=== PATIENT | male | born 1955 | race Caucasian/White ===

== ENCOUNTER → 2018-02-25 10:24 | Outpatient (CLI) | payer OTHER, SELFPAY ==
--- NOTE | 2018-02-25 | DI.MRI.S_ITS ---
PROCEDURE: MR LUMBAR SPINE WO CON INDICATIONS: ARTHRITIS BILATERAL SCIATICA LUMBAR REGION TECHNIQUE: Noncontrast sagittal T1 spin echo and T2 fast echo, sagittal STIR, axial T1 and T2 fast spin echo through the lumbar spine. In cases with scoliosis, additional coronal T2 fast spin echo may be performed. COMPARISON: None. FINDINGS: Image quality: Excellent. Alignment and Curvature: There is normal bony alignment. Mild convex right thoracolumbar spine curvature. Bone Marrow: Mild reactive endplate changes noted adjacent to the L5-S1 disc. No acute vertebral body compression fractures. Spinal Cord: Conus medullaris terminates at the L1 level. Visualized cord demonstrates normal signal and size. Paraspinous Soft Tissues: No paravertebral masses. L1-L2: Normal appearance. L2-L3: Loss of disc signal. Mild, diffuse disc bulge. Moderate facet and moderate ligamentum flavum hypertrophy. Moderate to severe narrowing of the central canal. Mild bilateral neural foraminal narrowing. L3-L4: Loss of disc signal. Mild diffuse disc bulge. Severe facet and severe ligamentum flavum hypertrophy. Severe central stenosis. Moderate to severe bilateral neural foraminal narrowing with slight flexion deformity of the exiting L3 nerve roots. L4-L5: Loss of the signal. Minimal, diffuse disc bulge. Mild facet hypertrophy. Moderate narrowing of the central canal. Moderate bilateral neural foraminal narrowing. L5-S1: Loss of disc signal and height. Minimal, diffuse disc bulge and mild bilateral facet hypertrophy. No central stenosis. Moderate to severe bilateral neural foraminal narrowing with slight flattened deformity of the exiting L5 nerve roots. IMPRESSION: 1. Multilevel degenerative disc disease. 2. Multilevel facet arthropathy. 3. Severe L3-L4 central canal stenosis. Moderate to severe L2-L3 central canal narrowing. Moderate L4-L5 central canal narrowing. 4. Moderate to severe bilateral L3-L4 and L5-S1 neural foraminal narrowing. Moderate bilateral L4-L5 neural foraminal narrowing. Mild bilateral L2-L3 neural foraminal narrowing. Dictated by: Mary Mercedes MD, PhD on 02/25/2018 at 13:54 Approved by: Mary Mercedes MD, PhD on 02/25/2018 at 13:59
== END ==
PROVIDERS: PCP Family Medicine; Visit Provider Family Medicine
DX: M47.896 Other spondylosis, lumbar region (principal); M54.30 Sciatica, unspecified side; M51.36 Other intervertebral disc degeneration, lumbar region; M47.816 Spondylosis without myelopathy or radiculopathy, lumbar region; M48.061 Spinal stenosis, lumbar region without neurogenic claudication; M48.07 Spinal stenosis, lumbosacral region
CPT/HCPCS: 72148

== ENCOUNTER → 2018-03-04 10:49 | Outpatient (CLI) | payer OTHER, SELFPAY ==
[2018-03-04 12:05] LABS: Add Manual Diff / Slide Review NO; Basophils Percent Auto 0.8 % (0-2); Eosinophils Percent Auto 2.9 % (2-4); Hematocrit 38.1 % (41-53); Hemoglobin 12.8 g/dL (13.5-17.5); Lymphocytes Percent Auto 26.3 % (25-40); Mean Corpuscular HGB Conc 33.7 % (30-36); Mean Corpuscular Hemoglobin 30.7 PG (26-34); Mean Corpuscular Volume 91.1 fL (80-100); Monocytes Percent Auto 11.1 % (3-14); Neutrophils Absolute Auto 2900 /uL (3000-5900); Neutrophils Percent Auto 58.9 % (50-75); Platelet Count 193 X10^3/uL (150-400); Red Blood Cell Count 4.19 X10^6/uL (4.5-5.9); Red Cell Distribution Width 13.7 % (11.6-14.8)
[2018-03-04 12:13] LABS: Alanine Aminotransferase 31 IU/L (21-72); Albumin 3.9 g/dL (3.5-5.0); Albumin Globulin Ratio 1.5 (1.0-2.8); Alkaline Phosphatase 62 U/L (38-126); Aspartate Aminotransferase 28 IU/L (17-59); BUN Creatinine Ratio 18.8 (6-22); Bilirubin Total 0.7 mg/dL (0.2-1.3); Blood Urea Nitrogen 15 mg/dL (9-20); Calcium 8.9 mg/dL (8.4-10.2); Carbon Dioxide 28 mmol/L (22-32); Chloride 103 mmol/L (98-107); Estimated Glomerular Filt Rate > 60.0 mL/min (>60); Globulin 2.6 g/dL (1.7-4.1); Glucose 86 mg/dL (80-110); HEMOLYSIS < 15 (0-50); Potassium 4.8 mmol/L (3.4-5.1); Sodium 140 mmol/L (137-145); Total Protein 6.5 g/dL (6.3-8.2)
[2018-03-04 12:20] LABS: Erythrocyte Sedimentation Rate 4 MM/HR (0-15)
== END ==
PROVIDERS: PCP Family Medicine; Visit Provider Family Medicine
DX: M46.96 Unspecified inflammatory spondylopathy, lumbar region (principal); M54.31 Sciatica, right side; M54.32 Sciatica, left side
CPT/HCPCS: 36415; 80053; 85025; 85651

== ENCOUNTER → 2022-01-07 09:18 | Outpatient (CLI) | payer MEDICARE, OTHER, SELFPAY ==
[2022-01-07 19:16] LABS: Prostate Specific Antigen 2.49 ng/mL (0.10-4.00)
== END ==
PROVIDERS: PCP Family Medicine; Visit Provider Specialist
DX: R97.20 Elevated prostate specific antigen [PSA] (principal)
CPT/HCPCS: 84153

== ENCOUNTER → 2022-12-03 08:32 | Outpatient (CLI) | payer MEDICARE, OTHER, SELFPAY ==
[2022-12-03 10:50] LABS: Prostate Specific Antigen 3.33 ng/mL (0.10-4.00)
== END ==
PROVIDERS: Referring Provider Specialist; Visit Provider Specialist
DX: R97.20 Elevated prostate specific antigen [PSA] (principal)
CPT/HCPCS: 36415; 84153

== ENCOUNTER → 2022-12-24 11:44 | Outpatient (CLI) | payer MEDICARE, OTHER, SELFPAY ==
--- NOTE | 2022-12-24 11:46 | DI.MRI.S_ITS ---
PROCEDURE: MR SHOULDER RT WO CON INDICATIONS: Pain not resolving TECHNIQUE: Noncontrast oblique coronal T2 fast spin echo with fat saturation, oblique sagittal T1 spin echo and T2 fast spin echo with fat saturation, axial T1 spin echo and T2 fast spin echo with fat saturation through the shoulder. COMPARISON: [facility] ([facility]), CR, XR SHOULDER RT MIN 2V, 11/06/2022, 10:47. FINDINGS: Image quality: Excellent. Rotator cuff: Moderate T2 signal elevation diffusely throughout the supraspinatus and infraspinatus tendons at the humeral insertion sites extending the musculotendinous junctions, indicating tendinopathy. Superimposed full-thickness tearing of the mid and anterior supraspinatus tendon at the humeral insertion site measuring roughly 20 mm anteroposterior with medial retraction and atrophy of the supraspinatus. There is low-grade partial-thickness intrasubstance tearing of the mid and anterior infraspinatus tendon at the humeral insertion site. Subscapularis tendon demonstrates low-grade partial-thickness articular surface tearing within its mid and superior aspects at the humeral insertion site extending to the musculotendinous junction. Teres minor is intact. Bones and bursae: No bone marrow contusions or fractures. Mild glenohumeral and moderate acromioclavicular joint degeneration. The acromion demonstrates conventional anatomy, without an os acromiale. No pathologic subacromial-subdeltoid or subcoracoid bursal fluid is present. Capsule and soft tissues: Diffuse degenerative fraying of the glenoid labrum which demonstrates undercutting posteriorly, indicating tearing. The long head of the biceps tendon demonstrates normal location and morphology. The rotator interval appears normal, without fibrosis. The coracohumeral ligament is normal in thickness. IMPRESSION: 1. Supraspinatus and infraspinatus tendinopathy 2. Full-thickness and partial-thickness tears of the subscapularis, supraspinatus, and infraspinatus tendons as described above. 3. Glenoid labral tearing. 4. Acromioclavicular joint osteoarthritis. Dictated by: James Sierra M.D. on 12/24/2022 at 13:07 Approved by: James Sierra M.D. on 12/24/2022 at 13:10
== END ==
PROVIDERS: PCP Physician Assistant; Referring Provider Family Medicine; Visit Provider Family Medicine
DX: M75.121 Complete rotator cuff tear or rupture of right shoulder, not specified as traumatic (principal); S43.491A Other sprain of right shoulder joint, initial encounter; M75.41 Impingement syndrome of right shoulder; M19.011 Primary osteoarthritis, right shoulder; M25.511 Pain in right shoulder
CPT/HCPCS: 73221

== ENCOUNTER → 2023-01-13 11:28 | Outpatient (CLI) | payer MEDICARE, OTHER, SELFPAY ==
[2023-01-13 20:19] LABS: Prostate Specific Antigen 2.79 ng/mL (0.10-4.00)
== END ==
PROVIDERS: PCP Family Medicine; Visit Provider Specialist
DX: R97.20 Elevated prostate specific antigen [PSA] (principal)
CPT/HCPCS: 84153

== ENCOUNTER → 2023-06-21 14:07 | Outpatient (CLI) | payer MEDICARE, OTHER, SELFPAY ==
[2023-06-21 16:42] LABS: Prostate Specific Antigen 2.97 ng/mL (0.10-4.00)
== END ==
PROVIDERS: PCP Family Medicine; Referring Provider Specialist; Visit Provider Specialist
DX: N40.0 Benign prostatic hyperplasia without lower urinary tract symptoms (principal)
CPT/HCPCS: 36415; 84153

== ENCOUNTER → 2024-01-18 13:50 | Outpatient (CLI) | payer MEDICARE, OTHER, SELFPAY ==
[2024-01-18 17:02] LABS: Prostate Specific Antigen 3.74 ng/mL (0.10-4.00)
== END ==
PROVIDERS: PCP Family Medicine; Referring Provider Specialist; Visit Provider Specialist
DX: R97.20 Elevated prostate specific antigen [PSA] (principal)
CPT/HCPCS: 36415; 84153

== ENCOUNTER → 2024-05-23 13:56 | Outpatient (CLI) | payer MEDICARE, OTHER, SELFPAY | PROVIDERS: PCP Family Medicine; Referring Provider Specialist; Visit Provider Specialist | DX: N40.1 Benign prostatic hyperplasia with lower urinary tract symptoms (principal); N13.8 Other obstructive and reflux uropathy | CPT/HCPCS: 36415; 84153 ==

== ENCOUNTER → 2025-01-08 13:02 | Outpatient (CLI) | payer MEDICARE, OTHER, SELFPAY | PROVIDERS: PCP Family Medicine; Referring Provider Nurse Practitioner Family; Visit Provider Nurse Practitioner Family | DX: J02.9 Acute pharyngitis, unspecified (principal) | CPT/HCPCS: 87070 ==

== ENCOUNTER → 2025-05-16 11:08 | Outpatient (CLI) | payer MEDICARE, OTHER, SELFPAY ==
[2025-05-16 13:00] LABS: Prostate Specific Antigen 4.33 ng/mL (0.10-4.00)
== END ==
PROVIDERS: PCP Family Medicine; Referring Provider Urology; Visit Provider Urology
DX: R97.20 Elevated prostate specific antigen [PSA] (principal)
CPT/HCPCS: 36415; 84153